=== PATIENT | female | born 1985 | race Caucasian/White ===

== ENCOUNTER 2016-10-22 08:12 | Observation (INO) | payer OTHER ==
[~2016-10-22] VITALS: Ht 165 cm; Wt 74.4 kg
[2016-10-22 08:30] VITALS: BP 135/77
[2016-10-22] MEDS ORDERED: PNV1TABL54 PO (08:33)
== END 2016-10-22 10:30 | disposition home or self-care (01) ==
LOC: 4S 08:12
PROVIDERS: ADMIT Obstetrics & Gynecology; ATTEND Obstetrics & Gynecology
DX: O46.93 Antepartum hemorrhage, unspecified, third trimester (principal); Z3A.39 39 weeks gestation of pregnancy
CPT/HCPCS: 59025; G0378

== ENCOUNTER 2016-10-23 10:53 | Inpatient (IN) | payer OTHER ==
[~2016-10-23] VITALS: Ht 165 cm; Wt 74.4 kg
[~2016-10-23 10:53] MED LIST: PNV1TABL54 PO
[2016-10-23] MEDS ORDERED: CITRIC ACID/SODIUM CITRATE 30 ML SOLUTION UDCUP PO PRN (11:00)
[2016-10-23] MEDS ORDERED: RINGERS SOLUTION,LACTATED 1,000 ML IV PRN (11:00)
[2016-10-23] MEDS ORDERED: METOCLOPRAMIDE HCL 5 MG/ML 2 ML VIAL IVP PRN (11:00)
[2016-10-23] MEDS ORDERED: OXYTOCIN 30 UNITS/LACT RINGERS 500 ML IV PRN ×2 (11:00→17:55)
[2016-10-23 11:09] VITALS: BP 128/74
[2016-10-23] MEDS ORDERED: DINOPROSTONE 10 MG VAGINAL SUPPOSITORY VG ONE (11:45)
[2016-10-23] MEDS: RINGERS SOLUTION,LACTATED 1,000 ML IV SCH ×3 (12:29→23:58)
[2016-10-23 13:06] LABS: BASOPHILS % (AUTO) 0.3 % (0.0-2.0); EOSINOPHILS % (AUTO) 0.3 % (1.0-6.0); HEMOGLOBIN 12.6 g/dL (12.0-16.0); LYMPHOCYTES # (AUTO) 2.1 K/uL (1.0-4.8); LYMPHOCYTES % (AUTO) 27.1 % (22.0-44.0); MEAN CORPUSCULAR HGB CONC 33.3 G/dL (31.0-37.0); MEAN CORPUSCULAR VOLUME 90 fL (80-100); MONOCYTES # (AUTO) 0.6 K/uL (0.1-1.0); NEUTROPHILS # (AUTO) 5.1 K/uL (1.8-7.7); NEUTROPHILS % (AUTO) 64.3 % (40.0-70.0); PLATELET COUNT (AUTO) 173 K/uL (150-450); RED BLOOD CELL COUNT(AUTO) 4.21 MIL/uL (4.00-5.20); RED CELL DISTRIBUTION WIDTH 13.1 % (11.5-14.5); WHITE BLOOD COUNT (AUTO) 7.9 K/uL (4.5-11.0)
[2016-10-23] MEDS: FentaNYL CITRATE-PF 100 MCG/2 ML VIAL IVP PRN ×2 (14:14→14:38)
[2016-10-23] MEDS ORDERED: FentaNYL/BUPIV 0.125%/NS/PF 200 ML ED PRN (16:35)
[2016-10-23] MEDS ORDERED: BUPIVACAINE HCL/PF 0.25% 10 ML VIAL ONE (16:38)
[2016-10-23] MEDS ORDERED: DiphenhydrAMINE HCL 50 MG/ML VIAL IVP PRN (16:45)
[2016-10-23] MEDS ORDERED: ONDANSETRON HCL 4 MG/2 ML VIAL IVP PRN (16:45)
[2016-10-23] MEDS ORDERED: NALBUPHINE HCL 10 MG/ML VIAL IVP PRN (16:45)
[2016-10-23] MEDS ORDERED: CITRIC ACID/SODIUM CITRATE 30 ML SOLUTION UDCUP PO ONE (18:30)
[2016-10-23] MEDS ORDERED: OXYGEN THERAPY IH SCH (20:00)
[2016-10-24] MEDS ORDERED: RINGERS SOLUTION,LACTATED 1,000 ML IV ONE (01:03)
[2016-10-24] MEDS ORDERED: BENZOCAINE 20%/MENTHOL 56 GM SPRAY CANISTER TP PRN (01:15)
[2016-10-24] MEDS ORDERED: LANOLIN 7 GM OINTMENT TP PRN (01:15)
[2016-10-24] MEDS ORDERED: OxyCODONE HCL/ACETAMINOPHEN 5-325 MG TABLET PO PRN ×2 (01:15)
[2016-10-24] MEDS ORDERED: GLYCERIN/WITCH HAZEL LEAF 40 PADS JAR TP PRN (01:15)
[2016-10-24] MEDS ORDERED: IBUPROFEN 600 MG TABLET PO PRN (01:15)
[2016-10-24] MEDS ORDERED: MEASLES/MUMPS/RUBELLA VACCINE, LIVE 0.5 ML/VIAL SQ ONE (01:15)
[2016-10-24] MEDS: MAGNESIUM HYDROXIDE SUSPENSION 30 ML UDCUP PO SCH ×2 (09:12→21:00)
[2016-10-25] MEDS ORDERED: IBUP-1547 PO (08:20)
[2016-10-25] MEDS ORDERED: DSS100 PO (08:23)
== END 2016-10-25 12:45 | disposition home or self-care (01) | DRG 775 ==
LOC: 4S 10:53 → PREOBSVTOIN 11-20 11:37
PROVIDERS: ADMIT Obstetrics & Gynecology; ATTEND Obstetrics & Gynecology
PROC: 3E033VJ Introduction of Other Hormone into Peripheral Vein, Percutaneous Approach (ICD-10-PCS; 2016-10-23)
PROC: 10E0XZZ Delivery of Products of Conception, External Approach (ICD-10-PCS; principal; 2016-10-24)
PROC: 0KQM0ZZ Repair Perineum Muscle, Open Approach (ICD-10-PCS; 2016-10-24)
PROC: 00HU33Z Insertion of Infusion Device into Spinal Canal, Percutaneous Approach (ICD-10-PCS; 2016-10-24)
PROC: 3E0R3CZ (ICD-10-PCS; 2016-10-24)
DX: O69.81X0 Labor and delivery complicated by cord around neck, without compression, not applicable or unspecified (principal); O70.1 Second degree perineal laceration during delivery; O77.0 Labor and delivery complicated by meconium in amniotic fluid; Z3A.39 39 weeks gestation of pregnancy; Z37.0 Single live birth; Z88.0 Allergy status to penicillin
CPT/HCPCS: J2590; J3010; J3490; J7120

== ENCOUNTER 2019-03-24 12:56 | Inpatient (IN) | payer OTHER ==
[~2019-03-24] VITALS: Ht 165.1 cm; Wt 81.6 kg
[~2019-03-24 12:56] MED LIST changes: +DSS100 PO; +IBUP-2071 PO
[2019-06-09] MEDS ORDERED: PNV91TAB6 PO (23:13)
[2019-06-09 23:16] VITALS: BP 124/73
[2019-06-09] MEDS ORDERED: RINGERS SOLUTION,LACTATED 1,000 ML IV PRN (23:20)
[2019-06-09] MEDS ORDERED: METOCLOPRAMIDE HCL 5 MG/ML 2 ML VIAL IVP PRN (23:30)
[2019-06-09] MEDS ORDERED: CITRIC ACID/SODIUM CITRATE 30 ML SOLUTION UDCUP PO PRN (23:30)
[2019-06-09] MEDS ORDERED: DINOPROSTONE 10 MG VAGINAL SUPPOSITORY VG ONE (23:30)
[2019-06-09] MEDS ORDERED: FentaNYL CITRATE-PF 100 MCG/2 ML VIAL IVP PRN (23:30)
[2019-06-10 00:04] LABS: BASOPHILS % (AUTO) 0.4 % (0.0-2.0); EOSINOPHILS % (AUTO) 1.5 % (1.0-6.0); HEMATOCRIT 38.4 % (36-46); LYMPHOCYTES # (AUTO) 2.5 K/uL (1.0-4.8); LYMPHOCYTES % (AUTO) 26.5 % (22.0-44.0); MEAN CORPUSCULAR HEMOGLOBIN 30.5 pg (26.0-34.0); MEAN CORPUSCULAR HGB CONC 33.9 G/dL (31.0-37.0); MEAN CORPUSCULAR VOLUME 90 fL (80-100); MONOCYTES # (AUTO) 0.8 K/uL (0.1-1.0); MONOCYTES % (AUTO) 8.7 % (2.0-9.0); NEUTROPHILS # (AUTO) 5.8 K/uL (1.8-7.7); NEUTROPHILS % (AUTO) 62.9 % (40.0-70.0); PLATELET COUNT (AUTO)-OB 219 K/uL (150-450); RED BLOOD CELL COUNT(AUTO) 4.27 MIL/uL (4.00-5.20); RED CELL DISTRIBUTION WIDTH 13.6 % (11.5-14.5)
[2019-06-10] MEDS: RINGERS SOLUTION,LACTATED 1,000 ML IV SCH ×2 (00:43→07:52)
[2019-06-10] MEDS ORDERED: OXYGEN THERAPY IH SCH (08:00)
[2019-06-10] MEDS ORDERED: ONDANSETRON HCL 4 MG/2 ML VIAL IVP PRN (11:15)
[2019-06-10] MEDS ORDERED: DiphenhydrAMINE HCL 50 MG/ML VIAL IVP PRN (11:15)
[2019-06-10] MEDS ORDERED: ROPIVACAINE HCL/PF 0.2% 100 ML ED PRN ×2 (11:15→11:30)
[2019-06-10] MEDS ORDERED: DOCU-275 PO (11:20)
[2019-06-10] MEDS ORDERED: -PHARMACY NOTE- MISC ONE (11:30)
[2019-06-10] MEDS ORDERED: ROPIVACAINE HCL/PF 0.2% 100 ML ED ONE (12:04)
[2019-06-10] MEDS ORDERED: OXYTOCIN 30 UNITS/LACT RINGERS 500 ML IV PRN (15:31)
[2019-06-10] MEDS ORDERED: CeFAZolin 2 GM/DEXTROSE 0 ML IV ONE (18:25)
[2019-06-10] MEDS ORDERED: CLINDAMYCIN 900 MG/D5% WATER 50 ML IV ONE (18:36)
[2019-06-10] MEDS: CLINDAMYCIN 900 MG/D5% WATER 50 ML IV SCH (18:48)
[2019-06-10] MEDS ORDERED: OXYTOCIN 30 UNITS/LACT RINGERS 500 ML IV ONE (19:08)
[2019-06-10] MEDS ORDERED: GLYCERIN/WITCH HAZEL LEAF 40 PADS JAR TP PRN (19:15)
[2019-06-10] MEDS ORDERED: LIDOCAINE/PF 1% 30 ML VIAL INJ PRN (19:15)
[2019-06-10] MEDS ORDERED: IBUPROFEN 800 MG TABLET PO PRN (19:15)
[2019-06-10] MEDS ORDERED: BENZOCAINE 20%/MENTHOL 56 GM SPRAY CANISTER TP PRN (19:15)
[2019-06-10] MEDS ORDERED: OxyCODONE HCL/ACETAMINOPHEN 5-325 MG TABLET PO PRN ×2 (19:15)
[2019-06-10] MEDS ORDERED: LANOLIN 7 GM OINTMENT TP PRN (19:15)
[2019-06-10] MEDS ORDERED: MAGNESIUM HYDROXIDE SUSPENSION 30 ML UDCUP PO PRN (19:15)
[2019-06-10] MEDS: GENTAMICIN 120 MG/NACL ISO-OSM 100 ML IV SCH (19:37)
[2019-06-11] MEDS ORDERED: RINGERS SOLUTION,LACTATED 1,000 ML IV ONE (03:11)
[2019-06-11] MEDS: CLINDAMYCIN 900 MG/D5% WATER 50 ML IV SCH ×3 (03:13→18:09)
[2019-06-11 06:08] LABS: BASOPHILS % (AUTO) 0.3 % (0.0-2.0); EOSINOPHILS % (AUTO) 0.9 % (1.0-6.0); HEMATOCRIT 33.3 % (36-46); HEMOGLOBIN 11.2 g/dL (12.0-16.0); LYMPHOCYTES # (AUTO) 2.4 K/uL (1.0-4.8); LYMPHOCYTES % (AUTO) 17.1 % (22.0-44.0); MEAN CORPUSCULAR HEMOGLOBIN 30.5 pg (26.0-34.0); MEAN CORPUSCULAR HGB CONC 33.5 G/dL (31.0-37.0); MEAN CORPUSCULAR VOLUME 91 fL (80-100); MONOCYTES # (AUTO) 1.2 K/uL (0.1-1.0); MONOCYTES % (AUTO) 8.9 % (2.0-9.0); NEUTROPHILS # (AUTO) 10.1 K/uL (1.8-7.7); NEUTROPHILS % (AUTO) 72.8 % (40.0-70.0); PLATELET COUNT (AUTO)-OB 183 K/uL (150-450); RED BLOOD CELL COUNT(AUTO) 3.66 MIL/uL (4.00-5.20); RED CELL DISTRIBUTION WIDTH 13.4 % (11.5-14.5)
[2019-06-11] MEDS: GENTAMICIN 120 MG/NACL ISO-OSM 100 ML IV SCH (08:19)
== END 2019-06-11 19:15 | disposition home or self-care (01) | DRG 807 ==
LOC: 4S 06-09 21:36 → OBSVTOIN 06-09 21:36
PROVIDERS: ADMIT Obstetrics & Gynecology; ATTEND Obstetrics & Gynecology
PROC: 10E0XZZ Delivery of Products of Conception, External Approach (ICD-10-PCS; principal; 2019-06-10)
PROC: 0HQ9XZZ Repair Perineum Skin, External Approach (ICD-10-PCS; 2019-06-10)
PROC: 3E0R3BZ Introduction of Anesthetic Agent into Spinal Canal, Percutaneous Approach (ICD-10-PCS; 2019-06-10)
PROC: 00HU33Z Insertion of Infusion Device into Spinal Canal, Percutaneous Approach (ICD-10-PCS; 2019-06-10)
DX: O70.0 First degree perineal laceration during delivery (principal); Z37.0 Single live birth; Z3A.39 39 weeks gestation of pregnancy
CPT/HCPCS: 86850; 86900; 86901; J0690; J1580; J2590; J2795; J3490; J7120